=== PATIENT | female | born 1970 | race Caucasian/White ===

== ENCOUNTER → 2017-06-05 | Day surgery (SDC) | payer OTHER ==
--- NOTE | 2017-06-08 15:34 | PATH ---
Cytology Non-Gynecological Report Patient Name: JEANNE YOUNG [facility]. Rec. #: [id number] /Age/Gender: 1970 (Age: 46) / F Account: [id number] Location: RADIOLOGY Taken: 06/05/2017 Received: 06/05/2017 Reported: 06/08/2017 Physicians: Nehemiah Cruz M.D. Specimen(s) Received LEFT THYROID FNA Clinical History Left thyroid Nodule 3.59 x 2.07 x 1.81 cm Final Diagnosis THYROID, LEFT, FINE NEEDLE ASPIRATION: SATISFACTORY FOR EVALUATION. BETHESDA CLASS II: BENIGN. CYTOLOGIC FINDINGS ARE CONSISTENT WITH A BENIGN FOLLICULAR NODULE. SMALL FOLLICULAR CELLS WITH FOCAL METAPLASTIC CHANGE DISPERSED CLUSTERS AND AGGREGATES IN A BACKGROUND OF COLLOID. Electronically Signed Jeanne Pineda M.D. Gross Description Received are eight direct smears, four of which are air-dried and Diff-Quik stained, and four of which are alcohol fixed and Pap stained. Also received is 20 ml of bloody formalin from which one cellblock is prepared.
== END | disposition home or self-care (01) ==
LOC: JRADIR 08:43
PROVIDERS: ATTEND Internal Medicine Endocrinology, Diabetes & Metabolism
PROC: 0G9G3ZX Drainage of Left Thyroid Gland Lobe, Percutaneous Approach, Diagnostic (ICD-10-PCS; principal; 2017-06-05)
DX: E04.1 Nontoxic single thyroid nodule (principal)
CPT/HCPCS: 76942

== ENCOUNTER → 2017-06-12 | Day surgery (SDC) | payer OTHER ==
--- NOTE | 2017-06-15 13:32 | PATH ---
Cytology Non-Gynecological Report Patient Name: JEANNE YOUNG [facility]. Rec. #: [id number] /Age/Gender: 1970 (Age: 46) / F Account: [id number] Location: RADIOLOGY Taken: 06/12/2017 Received: 06/12/2017 Reported: 06/15/2017 Physicians: Nehemiah Cruz M.D. Specimen(s) Received THYROID FNA RIGHT Clinical History Right thyroid nodule, 1.51 x 1.35 x 1.2 cm Final Diagnosis THYROID, RIGHT, INFERIOR, FINE NEEDLE ASPIRATION: SATISFACTORY FOR EVALUATION. BETHESDA CLASS II: BENIGN. CYTOLOGIC FINDINGS ARE CONSISTENT WITH A BENIGN FOLLICULAR NODULE. BENIGN FOLLICULAR CELLS AND COLLOID PRESENT. Electronically Signed Jeanne Pineda M.D. Gross Description Received are eight direct smears, four of which are air-dried and Diff-Quik stained, and four of which are alcohol fixed and Pap stained. Also received is 20 ml of bloody formalin from which one cellblock is prepared.
== END | disposition home or self-care (01) ==
LOC: JRADIR 08:24
PROVIDERS: ATTEND Internal Medicine Endocrinology, Diabetes & Metabolism
PROC: 0G9H3ZX Drainage of Right Thyroid Gland Lobe, Percutaneous Approach, Diagnostic (ICD-10-PCS; principal; 2017-06-12)
DX: E04.1 Nontoxic single thyroid nodule (principal)
CPT/HCPCS: 76942; 88173; 88305-TC